=== PATIENT | male | born 1990 | race Asian ===

== ENCOUNTER 2022-04-27 09:55 | Outpatient (RCR) | payer MEDICAID, OTHER, SELFPAY | END 2022-08-04 10:44 | disposition home or self-care (01) | LOC: HO.PTCHIC 09:55 | PROVIDERS: Visit Provider Anesthesiology Pain Medicine | DX: M51.16 Intervertebral disc disorders with radiculopathy, lumbar region (principal) | CPT/HCPCS: 97110; 97161 ==